=== PATIENT | female | born 1990 | race Caucasian/White ===

== ENCOUNTER 2017-03-08 14:54 | Emergency (ER) | payer SELFPAY | END 2017-03-08 15:18 | disposition left against medical advice (07) | LOC: EMS 14:56 | DX: T73.0XXA Starvation, initial encounter (principal); Z53.21 Procedure and treatment not carried out due to patient leaving prior to being seen by health care provider ==

== ENCOUNTER 2017-03-08 15:50 | Emergency (ER) | payer SELFPAY ==
[~2017-03-08] VITALS: Ht 160 cm; Wt 63.6 kg
[2017-03-08 15:58] VITALS: BP 128/85
== END 2017-03-08 17:32 | disposition left against medical advice (07) ==
LOC: EMS 15:51
DX: Z00.00 Encounter for general adult medical examination without abnormal findings (principal); Z53.21 Procedure and treatment not carried out due to patient leaving prior to being seen by health care provider

== ENCOUNTER 2018-04-12 18:26 | Inpatient (IN) | payer MEDICAID ==
[~2018-04-12] VITALS: Ht 160 cm; Wt 63.6 kg
[2018-04-12 20:31] LABS: BASOPHILS % (AUTO) 1.5 % (0.0-2.0); EOSINOPHILS % (AUTO) 1.9 % (1.0-6.0); HEMOGLOBIN 13.1 g/dL (12.0-16.0); LYMPHOCYTES # (AUTO) 6.5 K/uL (1.0-4.8); LYMPHOCYTES % (AUTO) 46.6 % (22.0-44.0); MEAN CORPUSCULAR HEMOGLOBIN 30.6 pg (26.0-34.0); MEAN CORPUSCULAR HGB CONC 33.5 G/dL (31.0-37.0); MEAN CORPUSCULAR VOLUME 91 fL (80-100); PLATELET COUNT (AUTO) 510 K/uL (150-450); RED BLOOD CELL COUNT(AUTO) 4.28 MIL/uL (4.00-5.20); RED CELL DISTRIBUTION WIDTH 14.7 % (11.5-14.5)
[2018-04-12 20:40] LABS: ANION GAP 7 mmol/L (8-16); CALCIUM, TOTAL 8.6 mg/dL (8.8-10.5); CARBON DIOXIDE 28 mmol/L (22-29); CHLORIDE 102 mmol/L (98-107); CREATININE 0.53 mg/dL (0.60-1.30); GLOMERULAR FILTR. RATE CALC > 60 mL/min (>60); GLUCOSE,RANDOM 74 mg/dL (70-110); POTASSIUM 3.5 mmol/L (3.5-5.1); SODIUM SERUM 137 mmol/L (136-145); UREA NITROGEN, BLOOD 4 mg/dL (7-18)
[2018-04-12 20:46] LABS: ALANINE AMINOTRANSFERASE 86 U/L (12-78); ALBUMIN 3.5 g/dL (3.4-5.0); ALKALINE PHOSPHATASE 99 U/L (46-116); ASPARTATE AMINOTRANSFERASE 52 U/L (15-37); BILIRUBIN,TOTAL 0.7 mg/dL (0.1-1.0); TOTAL PROTEIN, SERUM 7.4 g/dL (6.4-8.2)
[2018-04-13] MEDS ORDERED: ZOLPIDEM TARTRATE 10 MG TABLET PO PRN (01:45)
[2018-04-13] MEDS: LORazepam 2 MG TABLET PO PRN ×2 (04:17→16:37)
[2018-04-13 05:12] VITALS: BP 122/78
[2018-04-13] MEDS: RisperiDONE 1 MG TABLET PO SCH ×2 (10:44→16:38)
[2018-04-13 16:09] VITALS: BP 112/75
[2018-04-14] MEDS ORDERED: LORazepam 2 MG/ML VIAL ONE (08:43)
[2018-04-14] MEDS ORDERED: HALOPERIDOL LACTATE 5 MG/ML VIAL ONE (08:44)
[2018-04-14] MEDS: RisperiDONE 1 MG TABLET PO SCH ×2 (09:00→16:52)
[2018-04-14] MEDS ORDERED: HALOPERIDOL LACTATE 5 MG/ML VIAL IM ONE (09:00)
[2018-04-14] MEDS ORDERED: LORazepam 2 MG/ML VIAL IM ONE (09:00)
[2018-04-14 16:00] VITALS: BP 110/72
[2018-04-14] MEDS: HALOPERIDOL 5 MG TABLET PO PRN (16:52)
[2018-04-14] MEDS: LORazepam 2 MG TABLET PO PRN (16:52)
[2018-04-15] MEDS: RisperiDONE 1 MG TABLET PO SCH ×2 (09:44→16:59)
[2018-04-15] MEDS: LORazepam 2 MG TABLET PO PRN ×2 (09:45→16:59)
[2018-04-15] MEDS: DIVALPROEX SODIUM 500 MG ER TABLET PO SCH (10:21)
[2018-04-15 11:09] VITALS: BP 106/72
[2018-04-15 16:16] VITALS: BP 116/67
[2018-04-15] MEDS: HALOPERIDOL 5 MG TABLET PO PRN (16:59)
[2018-04-16 05:14] VITALS: BP 130/78
[2018-04-16] MEDS: LORazepam 2 MG TABLET PO PRN ×2 (05:49→16:36)
[2018-04-16] MEDS: RisperiDONE 1 MG TABLET PO SCH ×2 (08:54→16:36)
[2018-04-16] MEDS: DIVALPROEX SODIUM 500 MG ER TABLET PO SCH (08:54)
[2018-04-16 10:12] VITALS: BP 128/75
[2018-04-16 16:09] VITALS: BP 100/65
[2018-04-16] MEDS: HALOPERIDOL 5 MG TABLET PO PRN (18:58)
[2018-04-17 06:31] VITALS: BP 106/70
[2018-04-17 08:38] LABS: BASOPHILS % (AUTO) 1.3 % (0.0-2.0); EOSINOPHILS % (AUTO) 3.4 % (1.0-6.0); HEMATOCRIT 40.8 % (36-46); HEMOGLOBIN 13.7 g/dL (12.0-16.0); LYMPHOCYTES # (AUTO) 3.9 K/uL (1.0-4.8); LYMPHOCYTES % (AUTO) 42.5 % (22.0-44.0); MEAN CORPUSCULAR HEMOGLOBIN 30.8 pg (26.0-34.0); MEAN CORPUSCULAR HGB CONC 33.7 G/dL (31.0-37.0); MEAN CORPUSCULAR VOLUME 92 fL (80-100); MONOCYTES # (AUTO) 0.6 K/uL (0.1-1.0); MONOCYTES % (AUTO) 6.6 % (2.0-9.0); NEUTROPHILS # (AUTO) 4.2 K/uL (1.8-7.7); NEUTROPHILS % (AUTO) 46.2 % (40.0-70.0); PLATELET COUNT (AUTO) 537 K/uL (150-450); RED BLOOD CELL COUNT(AUTO) 4.46 MIL/uL (4.00-5.20); RED CELL DISTRIBUTION WIDTH 14.5 % (11.5-14.5)
[2018-04-17] MEDS: RisperiDONE 1 MG TABLET PO SCH ×2 (09:15→16:49)
[2018-04-17] MEDS: DIVALPROEX SODIUM 500 MG ER TABLET PO SCH (09:15)
[2018-04-17] MEDS: LORazepam 2 MG TABLET PO PRN ×3 (09:15→18:03)
[2018-04-17] MEDS: HALOPERIDOL 5 MG TABLET PO PRN ×2 (13:53→18:03)
[2018-04-17 16:09] VITALS: BP 108/66
[2018-04-18 06:42] VITALS: BP 109/64
[2018-04-18] MEDS: DIVALPROEX SODIUM 500 MG ER TABLET PO SCH (09:48)
[2018-04-18] MEDS: RisperiDONE 1 MG TABLET PO SCH ×2 (09:48→16:49)
[2018-04-18 10:00] VITALS: BP 110/72
[2018-04-18] MEDS: LORazepam 2 MG TABLET PO PRN (10:38)
[2018-04-18] MEDS: HALOPERIDOL 5 MG TABLET PO PRN (13:38)
[2018-04-18 16:10] VITALS: BP 105/74
[2018-04-19 07:18] VITALS: BP 115/72
[2018-04-19] MEDS: DIVALPROEX SODIUM 500 MG ER TABLET PO SCH (08:53)
[2018-04-19] MEDS: RisperiDONE 1 MG TABLET PO SCH (08:53)
[2018-04-19] MEDS: LORazepam 2 MG TABLET PO PRN (08:56)
[2018-04-19 09:06] LABS: BASOPHILS % (AUTO) 0.8 % (0.0-2.0); EOSINOPHILS % (AUTO) 2.2 % (1.0-6.0); HEMATOCRIT 40.8 % (36-46); HEMOGLOBIN 13.9 g/dL (12.0-16.0); LYMPHOCYTES # (AUTO) 3.1 K/uL (1.0-4.8); LYMPHOCYTES % (AUTO) 32.3 % (22.0-44.0); MEAN CORPUSCULAR HEMOGLOBIN 30.9 pg (26.0-34.0); MEAN CORPUSCULAR HGB CONC 34.1 G/dL (31.0-37.0); MEAN CORPUSCULAR VOLUME 91 fL (80-100); MONOCYTES # (AUTO) 0.7 K/uL (0.1-1.0); MONOCYTES % (AUTO) 7.1 % (2.0-9.0); NEUTROPHILS # (AUTO) 5.5 K/uL (1.8-7.7); NEUTROPHILS % (AUTO) 57.6 % (40.0-70.0); PLATELET COUNT (AUTO) 542 K/uL (150-450); RED CELL DISTRIBUTION WIDTH 14.6 % (11.5-14.5)
[2018-04-19] MEDS ORDERED: DIVA500T52 PO (10:50)
[2018-04-19] MEDS ORDERED: RISP1 PO (10:50)
== END 2018-04-19 14:05 | disposition home or self-care (01) | DRG 751 ==
LOC: EMS 18:27 → B3A 04-13 02:46
PROVIDERS: ADMIT Psychiatry & Neurology Child & Adolescent Psychiatry; ATTEND Psychiatry & Neurology Child & Adolescent Psychiatry
DX: F29 Unspecified psychosis not due to a substance or known physiological condition (principal); F15.10 Other stimulant abuse, uncomplicated; D72.829 Elevated white blood cell count, unspecified; F41.9 Anxiety disorder, unspecified; R74.0 Nonspecific elevation of levels of transaminase and lactic acid dehydrogenase [LDH]; Z87.891 Personal history of nicotine dependence
CPT/HCPCS: 99285; G0480; J1630; J2060